=== PATIENT | female | born 1985 | race Caucasian/White ===

== ENCOUNTER 2019-04-20 08:45 | Emergency (ER) | payer OTHER ==
[2019-04-20 09:05] VITALS: BP 123/80
--- NOTE | 2019-04-20 09:22 | UC ---
Lower Extremity/Ankle HPI - HPI Summary HPI Summary: 34 y/o female presents to the urgent care c/o pain in the L 4th toe s/p injury after hitting her bed w/ her left foot yesterday. She then developed a bruise and this morning it is very painful to bear weight. She reports she applied ice and has taken Ibuprofen PO to alleviate symptoms. Pt denies numbness or tingling , sensation over the left foot No previous injury to that foot. She has been Healthy and denies fever, URI, SOB, chest pain,abdominal pain, N/V/D - History of Current Complaint Chief Complaint: UCLowerExtremity Stated Complaint: TOE PAIN Time Seen by Provider: 04/20/19 09:18 Hx Obtained From: Patient Hx Last Menstrual Period: 03/20/19 ?: No - Pt declines test Onset/Duration: Sudden Onset, Lasting Days - 1 day, Still Present, Worse Since - todya w/ a bruise at the base of her 4th toe Severity Initially: Moderate Severity Currently: Moderate Pain Intensity: 5 - walking Pain Scale Used: 0-10 Numeric Aggravating Factor(s): Ambulation Alleviating Factor(s): Rest, OTC Meds - ibuprofen PO Able to Bear Weight: Yes - Risk Factors Gout Risk Factors: Negative DVT Risk Factors: Negative Septic Arthritis Risk Factor: Negative - Allergies/Home Medications Allergies/Adverse Reactions: Allergies Allergy/AdvReac Type Severity Reaction Status Date / Time No Known Allergies Allergy Verified 04/20/19 08:59 Home Medications: Home Medications Telmisartan 80 mg PO DAILY 04/20/19 [History Confirmed 04/20/19] PMH/Surg Hx/FS Hx/Imm Hx Previously Healthy: Yes Cardiovascular History: Hypertension - Surgical History Surgical History: None - Family History Known Family History: Positive: Hypertension, Diabetes - Social History Occupation: Employed Full-time Lives: With Family Alcohol Use: Occasionally Substance Use Type: None Smoking Status (MU): Never Smoked Tobacco Review of Systems All Other Systems Reviewed And Are Negative: Yes Constitutional: Positive: Negative Skin: Positive: Bruising - at the base of the left 4th toe Eyes: Positive: Negative ENT: Positive: Negative Respiratory: Positive: Negative Cardiovascular: Positive: Negative Gastrointestinal: Positive: Negative Genitourinary: Positive: Negative Motor: Positive: Negative Neurovascular: Positive: Negative Musculoskeletal: Positive: Decreased ROM - left 4th toe, Other: - left 4th toe pain s/p injury Neurological: Positive: Negative Psychological: Positive: Negative Is Patient Immunocompromised?: No Physical Exam - Summary Physical Exam Summary: Vital Signs Reviewed: Yes General : well developed, well nourished female w/o any apparent distress Eyes: Positive: Conjunctiva Clear - PERRLA, EOMI ENT: Positive: Normal ENT inspection, Hearing grossly normal, Pharynx normal, TMs normal Neck: Positive: Supple, Nontender, No Lymphadenopathy Respiratory: Positive: Chest non-tender, Lungs clear, Normal breath sounds, No respiratory distress Cardiovascular: Positive: RRR, No Murmur, Pulses Normal Abdomen Description: Positive: Nontender, No Organomegaly, Soft. Negative: CVA Tenderness (R), CVA Tenderness (L) Bowel Sounds: Positive: Present Musculoskeletal: Positive: Strength Intact, ROM Intact, No Edema, LF Foot/Toes : Pt is able to bear weight but ambulate with mild limping. LF foot :positive ecchymosis around left 4th toe w/ soft tissue swelling, bruise spreading at dorsal side of foot, no erythema, no ulcers or break in skin integrity. The LF foot is without obvious asymmetry or deformity when compared to the L foot. No bony step-off, No tenderness to palpation over toes, point tenderness over the dorsal side of anterior foot and the 4th toe, w/ decrease ROM, NO mid or hindfoot tenderness, Decrease plantar/dorsiflexion, inversion/eversion due to pain. Distal motor and neurovascular status are intact. Neurological Exam: Normal Psychological Exam: Normal Skin Exam: Normal Triage Information Reviewed: Yes Vital Signs: Initial Vital Signs Temp 97.7 F 04/20/19 09:00 Pulse 72 04/20/19 09:00 Resp 18 04/20/19 09:00 BP 123/80 04/20/19 09:00 Pulse Ox 99 04/20/19 09:00 Lower Extremity Course/Dx - Course Course Of Treatment: 34 y/o female presents to the urgent care c/o pain in the L 4th toe s/p injury after hitting her bed w/ her left foot yesterday. She then developed a bruise and this morning it is very painful to bear weight. She reports she applied ice and has taken Ibuprofen PO to alleviate symptoms. Pt denies numbness or tingling , sensation over the left foot No previous injury to that foot. She has been Healthy and denies fever, URI, SOB, chest pain,abdominal pain, N/V/D RT foot X-ray ordered, FINDINGS: The bone mineralization is within normal limits. There is an obliquely oriented nondisplaced fracture extending from the mid to distal shaft of the fourth proximal phalanx. Anatomic alignment is maintained. The joint spaces are preserved. IMPRESSION: NONDISPLACED FOURTH PROXIMAL PHALANX FRACTURE ABOVE. Pt's toe immobilized by body taping and terence- bandage and given a post-op shoe to avoid flexion. Advised to use her crutches at to avoid weight bearing. Advised RICE, and Rx Ibuprofen PO for pain, If not improvement of symptoms to f/u with Orthopedic DR Rob referral in 1-2 days for further evaluation and treatment. Pt understood and agreed with D/C instructions. - Differential Dx/Diagnosis Differential Diagnosis/HQI/PQRI: Contusion, Dislocation, Fracture (Open), Sprain , Strain, Tendonitis Provider Diagnosis: Nondisplaced fracture of phalanx of toe of left foot Discharge ED - Sign-Out/Discharge Documenting (check all that apply): Patient Departure - D/C home All imaging exams completed and their final reports reviewed: Yes - Discharge Plan Condition: Stable Disposition: HOME Prescriptions: Ibuprofen TAB* [Motrin TAB* 800 MG] 800 mg PO Q6H PRN #30 tab PRN Reason: moderate pain Patient Education Materials: Toe Fracture (ED) Forms: *Work Release Referrals: Jamarcus Donaldson MD [Primary Care Provider] - 2 Days Wilton Rob MD [Medical Doctor] - 1 Day Additional Instructions: 1-Please continue taken Ibuprofen PO q6-8hrs after meals as directed to alleviate pain and swelling. 2-Please apply ice, keep your foot immobilized with the Terence bandage, use the post up shoe to avoid flexion of your toe. Avoid strenuous exercise or standing for long periods of time. Elevate your foot to decrease swelling and use the crutches you have at home to avoid weight bearing. 3- Please f/u with orthopedic Dr Rob in 1-2 days for further evaluation and treatment on your toe fracture - Billing Disposition and Condition Condition: STABLE Disposition: Home
[2019-04-20] MEDS ORDERED: Ibuprofen TAB* 400 MG PO ONE (09:43)
== END 2019-04-20 10:19 | disposition home or self-care (01) ==
LOC: UCEAST 08:45
DX: S92.912A Unspecified fracture of left toe(s), initial encounter for closed fracture (principal); W22.03XA Walked into furniture, initial encounter; Y92.9 Unspecified place or not applicable
CPT/HCPCS: 99213; A9270-GY; G0463